=== PATIENT | male | born 1970 | race Hispanic/Latino ===

== ENCOUNTER 2018-12-26 10:44 | Emergency (ER) | payer SELFPAY ==
[2018-12-26] MEDS ORDERED: OCTYL 2-CYANOACRYLATE 1 EACH TP ONE (10:53)
[2018-12-26] MEDS ORDERED: LIDOCAINE 2%-EPI 1:200,000 20 ML VIAL IJ ONE ×2 (11:04→11:09)
[2018-12-26] MEDS ORDERED: TETANUS/DIPHTHERIA TOXOID [ADULT] 0.5 ML VIAL IM ONE (11:10)
[2018-12-26] MEDS ORDERED: CEFAZOLIN SODIUM 1 GM VIAL ONE (11:55)
== END 2018-12-26 13:36 | disposition home or self-care (01) ==
LOC: EDH 10:44
DX: S61.212A Laceration without foreign body of right middle finger without damage to nail, initial encounter (principal); X58.XXXA Exposure to other specified factors, initial encounter; Y93.89 Activity, other specified; Y92.89 Other specified places as the place of occurrence of the external cause; Y99.8 Other external cause status
CPT/HCPCS: 12042; 73130; 90471; 90714; 99284; A4218; J0690; J3490 ×2

== ENCOUNTER 2018-12-29 14:05 | Inpatient (IN) | payer SELFPAY ==
[~2018-12-29] VITALS: Ht 167.6 cm; Wt 84.1 kg
[2018-12-29 15:56] LABS: BASOPHILS % (AUTO) 0.2 % (0.0-5.0); EOSINOPHILS % (AUTO) 0.8 % (0.0-8.0); HEMATOCRIT 43.8 % (42-54); LYMPHOCYTES % (AUTO) 11.8 % (21.0-51.0); MEAN CORPUSCULAR HEMOGLOBIN 28.6 pg (27.0-33.0); MEAN CORPUSCULAR HGB CONC 33.4 g/dL (32.0-36.0); MEAN CORPUSCULAR VOLUME 85.7 fL (79-99); MONOCYTES % (AUTO) 4.9 % (3.0-13.0); NEUTROPHILS % (AUTO) 82.3 % (40.0-77.0); PLATELET COUNT (AUTO) 240 K/uL (130-400); RED BLOOD CELL COUNT(AUTO) 5.11 MIL/uL (4.50-6.20); RED CELL DISTRIBUTION WIDTH 13.3 % (11.0-15.5); WHITE BLOOD COUNT (AUTO) 8.3 K/uL (4.8-10.8)
[2018-12-29] MEDS ORDERED: CEFAZOLIN SODIUM 1 GM VIAL ONE (15:56)
[2018-12-29 16:05] LABS: POTASSIUM 3.7 mmol/L (3.5-5.1)
[2018-12-30] VITALS (17 sets, daily range): BP systolic 128–163; BP diastolic 76–91
[2018-12-30] MEDS ORDERED: ACETAMINOPHEN-CODEINE 300/30MG TAB PO PRN (03:45)
[2018-12-30] MEDS ORDERED: MORPHINE SULFATE 2 MG/ML 1ML SYG IVP PRN (03:45)
[2018-12-30] MEDS: CEFAZOLIN SODIUM 1 GM VIAL IVP SCH ×2 (04:12→11:54)
[2018-12-30] MEDS ORDERED: LACTATED RINGERS 1000ML 1,000 ML IV ONE (06:57)
[2018-12-30] MEDS ORDERED: LIDOCAINE PF 2% 5ML ABBOJECT ONE (07:39)
[2018-12-30] MEDS ORDERED: FENTANYL CITRATE PF 50 MCG/1 ML 2ML VIAL ONE (07:39)
[2018-12-30] MEDS ORDERED: ONDANSETRON HCL 4 MG/2 ML VIAL ONE (07:39)
[2018-12-30] MEDS ORDERED: DEXAMETHASONE SOD PHOSPHATE 10MG/ML 1ML VIAL ONE (07:39)
[2018-12-30] MEDS ORDERED: PROPOFOL 10 MG/ML 20ML VIAL IV ONE (07:39)
[2018-12-30] MEDS ORDERED: MIDAZOLAM HCL 1 MG/ML 2ML VIAL ONE (07:39)
[2018-12-30] MEDS ORDERED: LIDOCAINE HCL 1% 20 ML VIAL ONE (07:58)
--- NOTE | 2018-12-30 09:00 | NUR ---
POST OP PATIENT RECEIVED FROM PACU AWAKE AND ALERT. VOICES ALL NEEDS. NO COMPLAINTS OF PAIN VOICED AT THIS TIME. VITALS STABLE. AFEBRILE. RIGHT 3RD DIGIT FINGER OPEN TO AIR. RIGHT ARM IN SLING. RESP EVEN AND UNLABORED. NO SOB NOTED. ON ROOM AIR. POC DISCUSSED. POST OP ORDERS RECEIVED AND CARRIED OUT. FAMILY AT BEDSIDE. CALL LIGHT WITHIN REACH. WILL CONTINUE TO BE OBSERVED. Addendum: 12/30/18 at 1215 by RADHA GALLAGHER RN RN Amended: Links added.
--- NOTE | 2018-12-30 13:30 | NUR ---
DISCHARGE PATIENT GIVEN DISCHARGE INSTRUCTIONS AND EDUCATION, INCLUDING SIDE EFFECTS ON NEW PRESCRIBED MEDICATIONS AND FOLLOW UP APPOINTMENTS. PATIENT VERBALIZED UNDERSTANDING OF ALL EDUCATION GIVEN VIA TEACH BACK. IVS DISCONTINUED, CATHETERS INTACT. NO SIGNS OF DISTRESS NOTED UPON DISCHARGE. PATIENT LEFT VIA AMBULATORY WITH GIRLFRIEND AT SIDE. ALL BELONGINGS TAKEN WITH. Addendum: 12/30/18 at 1349 by RADHA GALLAGHER RN RN Amended: Links added.
== END 2018-12-30 13:40 | disposition home or self-care (01) | DRG 906 ==
LOC: EDH 14:05 → EDHIP 14:06 → 4BH 12-30 00:46
PROVIDERS: ADMIT Surgery Plastic and Reconstructive Surgery; ATTEND Surgery Plastic and Reconstructive Surgery
PROC: 0JBJ0ZZ Excision of Right Hand Subcutaneous Tissue and Fascia, Open Approach (ICD-10-PCS; principal; 2018-12-30 07:38)
PROC: 0HRFX73 Replacement of Right Hand Skin with Autologous Tissue Substitute, Full Thickness, External Approach (ICD-10-PCS; 2018-12-30 07:38)
DX: S68.112A Complete traumatic metacarpophalangeal amputation of right middle finger, initial encounter (principal); X58.XXXA Exposure to other specified factors, initial encounter; Y93.89 Activity, other specified; Y92.89 Other specified places as the place of occurrence of the external cause; Y99.8 Other external cause status
CPT/HCPCS: 36415; 73130; 80048; 85025; A4218; G0378; J0690; J1100; J2001; J2250; J2405; J2704; J3010; J7030; J7120